=== PATIENT | female | born 1995 | race Two or more races ===

== ENCOUNTER 2020-05-01 18:54 | Inpatient (IN) ==
[2020-05-01 19:02] VITALS: BMI 31.9
[2020-05-01 19:29] LABS: BILIRUBIN,URINE NEGATIVE (NEGATIVE); BLOOD/HEMOGLOBIN,URINE 4+ (NEGATIVE); GLUCOSE, URINE NEGATIVE (NEGATIVE); KETONES,URINE NEGATIVE (NEGATIVE); LEUKOCYTE ESTERASE ,URINE NEGATIVE (NEGATIVE); NITRITES,URINE NEGATIVE (NEGATIVE); PROTEIN,URINE 1+ (NEGATIVE); UROBILINOGEN,URINE NORMAL (NORMAL)
[2020-05-01] MEDS ORDERED: D5LR 1L W PITOCIN 10 UNITS/L 10 UNITS/1,000 ML BAG IV PRN (19:34)
[2020-05-01] MEDS ORDERED: PHENERGAN INJ 25 MG IM PRN ×2 (19:34→21:31)
[2020-05-01] MEDS ORDERED: PITOCIN IVP ONE (19:34)
[2020-05-01] MEDS ORDERED: REGLAN INJ 10 MG VIAL IVP PRN (19:34)
[2020-05-01] MEDS ORDERED: STADOL INJ IVP PRN (19:37)
[2020-05-01 19:43] LABS: APPEARANCE,URINE HAZY (CLEAR); BACTERIA,URINE TRACE /HPF (NEGATIVE); COLOR,URINE YELLOW (YELLOW); SQUAMOUS EPITHELIAL CELL,UR MANY /HPF (NEGATIVE)
[2020-05-01 19:44] LABS: AMORPHOUS SEDIMENT,UR 3+ /HPF (NEGATIVE)
[2020-05-01] MEDS ORDERED: BETADINE SOLN ONE (19:56)
[2020-05-01] MEDS ORDERED: AMPICILLIN VIAL 2 GRAM 2 G in NS 100 ML IV + SPIKE MINIBAG* 100 ML IV SCH (20:00)
[2020-05-01] MEDS ORDERED: D5 1/2 NS 1000 ML 1,000 ML IV SCH (20:00)
[2020-05-01 20:19] LABS: BASOPHILS % (AUTO) 0.2 % (0.2-1.0); EOSINOPHILS # (AUTO) 0.1 x10^3/uL (0.0-0.2); EOSINOPHILS % (AUTO) 0.7 % (0.9-2.9); HEMOGLOBIN 12.5 g/dL (12.0-16.0); LYMPHOCYTES # (AUTO) 1.8 X10^3/uL (1.3-2.9); LYMPHOCYTES % (AUTO) 15.2 % (21.0-51.0); MEAN CORPUSCULAR HEMOGLOBIN 28.6 pg (27.0-34.0); MEAN CORPUSCULAR HGB CONC 32.9 g/dL (33.0-35.0); MEAN CORPUSCULAR VOLUME 87.1 fL (80.0-100.0); MEAN PLATELET VOLUME 8.4 fL (7.4-11.0); MONOCYTES # (AUTO) 0.8 x10^3/uL (0.3-0.8); MONOCYTES % (AUTO) 6.7 % (0.0-13.0); NEUTROPHILS # (AUTO) 9.3 x10^3/uL (2.2-4.8); NEUTROPHILS % (AUTO) 77.2 % (42.0-75.0); PLATELET COUNT 286 X10^3/uL (150.0-450.0); RED BLOOD COUNT 4.36 X10^6/uL (3.5-5.4); RED CELL DISTRIBUTION WIDTH 15.2 % (11.6-16.5); WHITE BLOOD COUNT 12.1 X10^3/uL (3.6-10.0)
[2020-05-01 20:24] LABS: BLOOD UREA NITROGEN 15 mg/dL (7-18); CALCIUM 9.1 mg/dL (8.5-10.1); CARBON DIOXIDE 21.6 mmol/L (21-32); CHLORIDE 103 mmol/L (98-107); CREATININE 1.07 mg/dL (0.55-1.02); SODIUM 136 mmol/L (136-145); eGFR NON BLACK RACES > 60 (>60)
[2020-05-01] MEDS ORDERED: AMPICILLIN VIAL 2 GRAM ONE (20:29)
[2020-05-01] MEDS ORDERED: NS 100 ML IV 100 ML IV ONE (20:30)
[2020-05-01] MEDS: D5 1/2 NS 1000 ML 1,000 ML with PITOCIN 20 UNITS IV SCH ×2 (21:15)
[2020-05-01] MEDS ORDERED: MOTRIN TAB 800 MG PO PRN (21:31)
--- NOTE | 2020-05-01 21:31 | DR.OB ---
OB Quick Note - Assessment/Plan Assessment/Plan: Delivery Note DATA SECURITY CONSULTANT 05/01/20 at 9:12pm Patient complete and pushing. Head delivered over intact perineum. Nose and mouth bulb suctioned. Nuchal cord x 1 reduced. Body delivered over intact perineum. Cord clamped x 2 and cut. Infant handed to attendant. Cord sent for gases. Placenta delivered spontaneously / intact / 3 vessel cord. No CVX / vaginal / perineal tears noted. Viable male infant, VTX/OA, wt=6'1" and 9/10, stable to NBN. Mother stable to RR. [id number].
[2020-05-01] MEDS ORDERED: AMBIEN PO PRN (22:27)
[2020-05-01] MEDS ORDERED: MILK OF MAGNESIA PO PRN (22:27)
[2020-05-01] MEDS ORDERED: DERMOPLAST PAIN RELIEF SPRAY TOP PRN (22:27)
[2020-05-01] MEDS ORDERED: ADACEL or BOOSTRIX TDaP VACCINE IM ONE (22:27)
[2020-05-02] MEDS ORDERED: AMPICILLIN VIAL 1 GRAM 1 G in NS 50 ML IV + SPIKE MINIBAG* 50 ML IV SCH ×2
[2020-05-02 05:28] LABS: HEMATOCRIT 35.3 % (36.0-47.0); HEMOGLOBIN 11.6 g/dL (12.0-16.0)
[2020-05-02] MEDS ORDERED: ADACEL or BOOSTRIX TDaP VACCINE IM ONE (05:48)
[2020-05-02] MEDS: D5 1/2 NS 1000 ML 1,000 ML with PITOCIN 20 UNITS IV SCH ×4 (06:44→13:31)
[2020-05-02] MEDS: PRENATAL PLUS PO SCH (08:15)
[2020-05-03] MEDS: PRENATAL PLUS PO SCH (09:39)
[2020-05-03 13:39] VITALS: BP 145/76
== END 2020-05-03 12:30 | disposition home or self-care (01) | DRG 807 ==
LOC: ER 18:54 → LD 19:30 → MED/SURG 22:21
PROVIDERS: ADMIT Specialist; ATTEND Specialist
CPT/HCPCS: 36415; 59409; 80048; 81001; 83020; 83021; 85014; 85018; 85025; 86592; 86850; 86900; 86901; 90715; 99284; A4216; A4222; J0290; J2590; J7050; S0197; S5010